=== PATIENT | male | born 1995 | race Hispanic/Latino ===

== ENCOUNTER 2018-04-17 20:23 | Emergency (ER) | payer SELFPAY ==
[2018-04-17 20:27] VITALS: TEMP 98.3
[2018-04-17 22:13] VITALS: BP 141/88; PULSE 114; RESP 15; O2SAT 99
--- NOTE | 2018-04-17 23:37 | ED PDOC ---
HPI: Psych/Substance Abuse Time Seen by Provider: 04/17/18 20:28 Chief Complaint (Nursing): Alcohol Ingestion Chief Complaint (Provider): Alcohol Ingestion History Per: Patient History/Exam Limitations: no limitations Modifying Factor(s): Alcohol Additional Complaint(s): 23 y/o male was brought to the ED by Julius HARRELL for possible alcohol intoxication and medical/psychiatric clearance for incarceration. Patient admits to drinking alcohol. He offers no complaints at this time. Denies SI/HI, hallucinations, injury. Past Medical History Reviewed: Historical Data, Nursing Documentation, Vital Signs Vital Signs: Last Vital Signs Temp 98.3 F 04/17/18 20:25 Pulse 114 H 04/17/18 20:42 Resp 15 04/17/18 20:42 BP 141/88 04/17/18 20:42 Pulse Ox 99 04/17/18 20:42 - Medical History PMH: Rheumatoid Arthritis Denies: Depression - Family History Family History: States: No Known Family Hx - Social History Alcohol: Social Drugs: Denies - Allergies Allergies/Adverse Reactions: Allergies Allergy/AdvReac Type Severity Reaction Status Date / Time No Known Allergies Allergy Verified 09/07/11 06:10 Review of Systems ROS Statement: Except As Marked, All Systems Reviewed And Found Negative Psych: Negative for: Psychosis, Suicidal ideation Physical Exam - Reviewed Nursing Documentation Reviewed: Yes Vital Signs Reviewed: Yes - Physical Exam Appears: Positive for: Well, Non-toxic (no alcohol on breath), No Acute Distress Head Exam: Positive for: ATRAUMATIC, NORMAL INSPECTION, NORMOCEPHALIC Skin: Positive for: Normal Color, Warm. Negative for: Rash Eye Exam: Positive for: EOMI, Normal appearance, PERRL ENT: Positive for: Normal ENT Inspection Neck: Positive for: Normal, Painless ROM Cardiovascular/Chest: Positive for: Regular Rate, Rhythm, Other (on cardiac exercise physiologist SR at 97-99 bpm ). Negative for: Murmur, Tachycardia Respiratory: Positive for: Normal Breath Sounds. Negative for: Respiratory Distress Gastrointestinal/Abdominal: Positive for: Normal Exam, Soft. Negative for: Tenderness Back: Positive for: Normal Inspection. Negative for: L CVA Tenderness, R CVA Tenderness Extremity: Positive for: Normal ROM. Negative for: Pedal Edema, Deformity Neurological/Psych: Positive for: Awake, Alert, Oriented (x3), Gait (steady and unassisted). Negative for: Other (slurred speech) - ECG O2 Sat by Pulse Oximetry: 99 (RA) Pulse Ox Interpretation: Normal - Progress ED Course And Treament: Pt. was released from custody then left ED prior to repeating vital signs. Medical Decision Making Medical Decision Making: Time: 20:28 Impression: alcohol intoxication Initial Plan: * Reevaluate Scribe Attestation: Documented by Femi Jaime acting as a scribe for Kavon Floyd PA-C. Provider Scribe Attestation: All medical record entries made by the Scribe were at my direction and personally dictated by me. I have reviewed the chart and agree that the record accurately reflects my personal performance of the history, physical exam, medical decision making, and the department course for this patient. I have also personally directed, reviewed, and agree with the discharge instructions and disposition. Disposition - Clinical Impression Clinical Impression: Medical clearance for incarceration - Patient ED Disposition Is Patient to be Admitted: No - Disposition Disposition: Routine/Home Disposition Time: 22:40 Condition: STABLE Additional Instructions: Patient is medically and psychiatrically cleared for incarceration. Instructions: General (DC) Forms: [employer] (Greek) Print Language: SLOVENIAN
== END 2018-04-17 22:40 | disposition home or self-care (01) ==
LOC: H.ER 20:23
DX: F10.129 Alcohol abuse with intoxication, unspecified (principal); M06.9 Rheumatoid arthritis, unspecified